=== PATIENT | male | born 1955 | race Caucasian/White ===

== ENCOUNTER 2019-12-23 06:58 | Inpatient (IN) | payer MEDICARE, OTHER ==
[~2019-12-23] VITALS: Ht 182.9 cm; Wt 130.0 kg
--- NOTE | 2019-12-23 06:00 | NUR ---
Patient in room [facility]. I have received report from EVONNE Germain and had the opportunity to ask questions and assume patient care.
[~2019-12-23 06:58] MED LIST: ACET-1008 PO; BACL-11 PO; DIPH25CA83 PO; FLUO-212 PO; FURO-149 PO; HUM100IN SQ; LACT10SO PO; LIDO700A32 TOP; LORA10TA65 PO; MELA3TAB11 PO; METO25TA6 PO; NEOM500T13 PO; OMEP-50 PO; POTA-82 PO; SPIR50TA PO; TRAZ-251 PO
[2019-12-23] MEDS ORDERED: normal saline 1000ML IV soln IVB ONE (07:40)
--- NOTE | 2019-12-23 07:51 | NUR ---
RN contacted Sharonda ROBLEDO and EVONNE Conde at [facility]. EVONNE Conde stated that patient has left-sided deficit at baseline, last took lactulose at 0000 on today 12/22. Post Acute staff clarified that patient has had decreased but consistent baseline strength and activity since returning from acute inpation hospitalization approx 7 days prior.
[2019-12-23 07:55] LABS: BASOPHILS # (AUTO) 0.1 X10'3 (0-0.2); BASOPHILS % (AUTO) 1.2 % (0-1); EOSINOPHILS # (AUTO) 0.2 X10'3 (0-0.9); EOSINOPHILS % (AUTO) 3.9 % (0-6); HEMATOCRIT 43.5 % (42.0-52.0); LYMPHOCYTES # (AUTO) 1.6 X10'3 (1.1-4.8); LYMPHOCYTES % (AUTO) 28.4 % (21-51); MEAN CORPUSCULAR HEMOGLOBIN 29.2 PG (27.0-31.0); MEAN CORPUSCULAR HGB CONC 34.4 g/dL (33.0-36.5); MEAN CORPUSCULAR VOLUME 84.7 FL (78-98); MEAN PLATELET VOLUME 8.3 FL (7.4-10.4); MONOCYTES # (AUTO) 0.6 X10'3 (0-0.9); MONOCYTES % (AUTO) 10.3 % (2-12); NEUTROPHILS # (AUTO) 3.1 X10'3 (1.8-7.7); NEUTROPHILS % (AUTO) 56.2 % (42-75); PLATELET COUNT 101 X10'3 (140-440); RED BLOOD COUNT 5.14 X10'6 (4.70-6.10); RED CELL DISTRIBUTION WIDTH 19.3 % (11.5-14.5); WHITE BLOOD COUNT 5.5 X10'3 (4.5-11.0)
[2019-12-23 08:02] LABS: ALANINE AMINOTRANSFERASE 30 U/L (12-78); ALBUMIN 2.6 G/DL (3.4-5.0); ALBUMIN/GLOBULIN RATIO 0.7 (1.1-1.5); ALKALINE PHOSPHATASE 64 IU/L (46-116); ANION GAP 11 (8-16); ASPARTATE AMINO TRANSFERASE 37 U/L (10-37); BLOOD UREA NITROGEN 32 MG/DL (7-18); BUN/CREATININE RATIO 23.2 (5.4-32.0); CALCIUM 8.5 MG/DL (8.5-10.1); CHLORIDE 116 MMOL/L (99-107); CREATININE 1.38 MG/DL (0.60-1.10); ETHANOL < 0.010 GM/DL (0.0-0.010); GLUCOSE 132 MG/DL (70-104); SODIUM 145 MMOL/L (135-145); TOTAL PROTEIN 6.2 G/DL (6.4-8.2); eGFR 52 ML/MIN
[2019-12-23 08:05] LABS: POTASSIUM 4.3 MMOL/L (3.5-5.1)
[2019-12-23 08:15] LABS: PLATELET ESTIMATE DECREASED
[2019-12-23 08:16] LABS: ANISOCYTOSIS 2+; BURR CELLS 1+; ELLIPTOCYTES 1+
[2019-12-23 08:16] LABS: CLARITY,URINE CLEAR (Clear); COLOR,URINE YELLOW (Yellow); GLUCOSE, URINE NEGATIVE (Neg); KETONES,URINE NEGATIVE (Neg); LEUKOCYTE ESTERASE ,URINE NEGATIVE (Neg); NITRITES, URINE NEGATIVE (Neg); OCCULT BLOOD,URINE NEGATIVE (Neg); PROTEIN,URINE NEGATIVE (Neg)
[2019-12-23 08:17] LABS: UA COLLECTION TYPE STRAIGHT CATH
[2019-12-23] MEDS ORDERED: haloperidol 5mg tablet PO PRN (08:45)
[2019-12-23] MEDS ORDERED: potassium CL 10mEq/100ml bag 100 ML IV PRN ×2 (08:45)
[2019-12-23] MEDS ORDERED: ondansetron/PF 4mg/2ml inj IV PRN (08:45)
[2019-12-23] MEDS ORDERED: mag hydrox/Alum hydrox/simeth 30ml oral suspension PO PRN (08:45)
[2019-12-23] MEDS ORDERED: magnesium hydroxide 30ml (MOM) UD suspension PO PRN (08:45)
[2019-12-23] MEDS ORDERED: potassium Cl 20 mEq SR tablet PO PRN ×2 (08:45)
[2019-12-23] MEDS ORDERED: LORazepam 2 mg/ml vial IV PRN (08:45)
[2019-12-23] MEDS ORDERED: dextrose 50%-water 50ml dispensing syringe IV PRN ×3 (08:45→12:55)
[2019-12-23] MEDS ORDERED: haloperidol lactate 5mg/ml inj IM PRN (08:45)
[2019-12-23] MEDS ORDERED: thiamine 100mg/ml 2ml inj. IV ONE (08:45)
[2019-12-23] MEDS ORDERED: acetaminophen 325mg tablet PO PRN ×2 (08:45)
[2019-12-23] MEDS ORDERED: NA P133E4 RC (09:20)
[2019-12-23] MEDS ORDERED: IBUP-1984 PO (09:20)
[2019-12-23] MEDS ORDERED: LEVE250T4 PO (09:20)
[2019-12-23] MEDS ORDERED: METH113C20 (09:20)
[2019-12-23] MEDS ORDERED: KEP500T PO (09:20)
[2019-12-23] MEDS ORDERED: [UNRECOGNIZED DRUG - CODE] METER (09:20)
[2019-12-23] MEDS ORDERED: BISA10SU60 RC (09:20)
[2019-12-23] MEDS ORDERED: MAGN400O6 PO (09:20)
[2019-12-23] MEDS ORDERED: NA P230E PR (09:20)
[2019-12-23 10:15] VITALS: BP 123/54
--- NOTE | 2019-12-23 10:20 | NUR ---
Patient received from ER, very difficult to arouse, minimal eye opening with sternal rub, MD Richard contacted and ordered Stat ABG's and stated that they will be over.
[2019-12-23 11:26] LABS: ABG BASE EXCESS -6.9 mmol/L (-2.0-3.0); ABG HCO3 16.3 mmol/L (22.0-26.0); ABG OXYGEN SATURATION 96.1 % (95-98); ABG PCO2 (T) 27.7 mmHg (35.0-45.0); ABG PH (T) 7.387 (7.350-7.450); ABG PO2 (T) 87.3 mmHg (83-108); FCOHb 0.1 % (0.5-1.5); FMetHb 0.2 % (0.3-1.12); FO2Hb 95.8 % (94-100); TOTAL HEMOGLOBIN 16.1 G/dl (14.0-17.9)
[2019-12-23] MEDS ORDERED: rifaximin 550mg tablet PO ONE (11:26)
[2019-12-23] MEDS: lactulose 20gm/30ml cup PO SCH ×3 (11:35→19:17)
--- NOTE | 2019-12-23 12:39 | NUR ---
xifaxan unable to scan, the five medication rights were observed.
[2019-12-23] MEDS ORDERED: insulin Lispro (HumaLOG) vial - multi-dose SQ SCH (12:55)
[2019-12-23] MEDS ORDERED: glucagon, human recombinant 1mg kit SUBCUT PRN (12:55)
[2019-12-23] MEDS ORDERED: dextrose ORAL solution 15 GM/59 ML bottle PO PRN ×2 (12:55)
[2019-12-23] MEDS ORDERED: MESSAGE TO PHARMACY PO ONE (12:55)
[2019-12-23] MEDS: sodium chloride 0.45% 1,000 ML IV SCH (13:47)
--- NOTE | 2019-12-23 16:22 | NUR ---
Patient physical assesment omissions are due to inability to assess due to patient unresponsiveness, lactulose given to address hepatic encephalopathy.
[2019-12-23] MEDS ORDERED: LIDOcaine 2% 10ml TOPICAL JELLY (Urojet) TP ONE (16:35)
[2019-12-23 18:00] VITALS: BP 135/78
--- NOTE | 2019-12-23 18:28 | NUR ---
Patient in room [facility]. I have received report from Kristopher DOUGLASS and had the opportunity to ask questions and assume patient care. Pt resting in bed, IV running @ 100, on room air. No signs of distress, will continue to monitor.
--- NOTE | 2019-12-23 18:30 | NUR ---
Problems reprioritized. Patient report given, questions answered & plan of care reviewed with EVONNE Hanson.
[2019-12-23 18:40] VITALS: BP 123/54
[2019-12-23] MEDS: K and/or MAG REPLACEMENT MC SCH (19:16)
[2019-12-23] MEDS: rifaximin 550mg tablet PO SCH (19:17)
[2019-12-23 20:00] VITALS: BP 135/78
[2019-12-23] MEDS: insulin glargine (Lantus) pen - multi-dose SQ SCH (21:00)
[2019-12-24] VITALS: BP 122/71
[2019-12-24] MEDS: sodium chloride 0.45% 1,000 ML IV SCH ×3 (00:13→20:25)
[2019-12-24] MEDS: HYDROcodone/acetaminophen 5mg/325mg tablet PO PRN (00:13)
[2019-12-24] MEDS: LORazepam 1 MG tablet PO PRN (00:13)
[2019-12-24] MEDS: lactulose 20gm/30ml cup PO SCH ×4 (03:45→23:10)
[2019-12-24 05:31] LABS: ALANINE AMINOTRANSFERASE 36 U/L (12-78); ALBUMIN 2.8 G/DL (3.4-5.0); ALBUMIN/GLOBULIN RATIO 0.7 (1.1-1.5); ALKALINE PHOSPHATASE 66 IU/L (46-116); ANION GAP 9 (8-16); ASPARTATE AMINO TRANSFERASE 37 U/L (10-37); BILIRUBIN,TOTAL 2.8 MG/DL (0.1-1.0); BLOOD UREA NITROGEN 23 MG/DL (7-18); CALCIUM 8.9 MG/DL (8.5-10.1); CHLORIDE 115 MMOL/L (99-107); CREATININE 1.21 MG/DL (0.60-1.10); GLUCOSE 126 MG/DL (70-104); POTASSIUM 4.3 MMOL/L (3.5-5.1); SODIUM 146 MMOL/L (135-145); TOTAL CARBON DIOXIDE 21.6 MMOL/L (24-32); TOTAL PROTEIN 6.6 G/DL (6.4-8.2); eGFR 61 ML/MIN
[2019-12-24 06:43] LABS: BASOPHILS # (AUTO) 0.1 X10'3 (0-0.2); BASOPHILS % (AUTO) 0.8 % (0-1); EOSINOPHILS # (AUTO) 0.2 X10'3 (0-0.9); EOSINOPHILS % (AUTO) 2.9 % (0-6); HEMATOCRIT 45.2 % (42.0-52.0); HEMOGLOBIN 15.6 g/dl (14.0-17.9); LYMPHOCYTES # (AUTO) 1.2 X10'3 (1.1-4.8); LYMPHOCYTES % (AUTO) 17.8 % (21-51); MEAN CORPUSCULAR HEMOGLOBIN 29.3 PG (27.0-31.0); MEAN CORPUSCULAR HGB CONC 34.5 g/dL (33.0-36.5); MEAN CORPUSCULAR VOLUME 85.2 FL (78-98); MEAN PLATELET VOLUME 8.6 FL (7.4-10.4); MONOCYTES # (AUTO) 0.9 X10'3 (0-0.9); MONOCYTES % (AUTO) 12.9 % (2-12); NEUTROPHILS # (AUTO) 4.4 X10'3 (1.8-7.7); NEUTROPHILS % (AUTO) 65.6 % (42-75); PLATELET COUNT 101 X10'3 (140-440); RED CELL DISTRIBUTION WIDTH 19.4 % (11.5-14.5); WHITE BLOOD COUNT 6.8 X10'3 (4.5-11.0)
--- NOTE | 2019-12-24 06:43 | NUR ---
Problems reprioritized. Patient report given, questions answered & plan of care reviewed with Jocelynn DOUGLASS.
--- NOTE | 2019-12-24 07:27 | NUR ---
Patient in room [facility]. I have received report from Margie DOUGLASS and had the opportunity to ask questions and assume patient care.
[2019-12-24 08:00] VITALS: BP 134/86
[2019-12-24] MEDS: K and/or MAG REPLACEMENT MC SCH ×2 (08:00→20:00)
[2019-12-24] MEDS ORDERED: enoxaparin 40mg/0.4ml syringe SUBCUT SCH (08:00)
[2019-12-24] MEDS: rifaximin 550mg tablet PO SCH ×2 (08:15→20:25)
[2019-12-24] MEDS: multivitamins, therapeutics tablet PO SCH (08:15)
[2019-12-24] MEDS: folic acid 1mg tablet PO SCH (08:15)
[2019-12-24 09:21] LABS: ANISOCYTOSIS 2+; PLATELET ESTIMATE DECREASED
--- NOTE | 2019-12-24 11:00 | NUR ---
At 0645 found pt's NG tube removed and laying on pt's chest. Charge Nurse advised. 0800 discussed with Charge checking pt's gag reflex (+) and pt awake and talking with this RN, able to state name, birthdate, in the hospital, ok to try small bites of ice and sips of water...tolerated well along with AM meds given PO crushed. Dr Pina notfied. Will continue to monitor.
[2019-12-24 12:00] VITALS: BP 139/80
--- NOTE | 2019-12-24 12:47 | NUR ---
Page Sent promotional table spacer PAGER ID: [phone] MESSAGE: Tanner Evans, Jocelynn med/surg, [phone], re: Jesusita, Rm 350A. Could you please clarify the thickened liquid diet you would like for this pt, or would you like a swallow study ordered for them to determine the consistency pt can tolerate? Thank you (237 character message out of a maximum of 240)
--- NOTE | 2019-12-24 15:39 | NUR ---
PAGER ID: [phone] MESSAGE: Jocelynn Med/Surg [phone], re: Jesusita [id number]. Have not been able to reach Speech Therapy by phone/mssg, so pt will probably have swallow eval in a.m. Is it ok to give PO meds with applesauce or yogurt? thank you
--- NOTE | 2019-12-24 16:10 | NUR ---
phone call from raman Aguilar to give pt meds crushed in yogurt, applesauce, jello or thickened liquids.
[2019-12-24] MEDS: neomycin sulfate 500mg tablet PO SCH ×2 (16:18→23:10)
[2019-12-24] MEDS: FLUoxetine 20mg capsule PO SCH (16:19)
[2019-12-24] MEDS: thiamine 100mg tablet PO SCH (16:19)
[2019-12-24] MEDS: metoprolol tartrate 25mg tablet PO SCH (16:19)
[2019-12-24] MEDS: levetiracetam 250mg tablet PO SCH ×2 (16:20→20:26)
--- NOTE | 2019-12-24 19:00 | NUR ---
Problems reprioritized. Patient report given, questions answered & plan of care reviewed with Margie DOUGLASS.
[2019-12-24 20:00] VITALS: BP 123/78
[2019-12-24] MEDS: traZODone 50mg tablet PO SCH (20:26)
[2019-12-24] MEDS: Melatonin 3mg tablet PO SCH (20:26)
[2019-12-24] MEDS: lactobacillus rhamnosus 10,000 MMU CELLS/CAPSULE PO SCH (20:27)
[2019-12-24] MEDS: insulin glargine (Lantus) pen - multi-dose SQ SCH (21:00)
[2019-12-24 23:46] VITALS: BP 132/79
--- NOTE | 2019-12-25 04:19 | NUR ---
Due to system unavailability all documentation completed is found in the paper chart during the following time frame: starting date: 12/24/2019 time: 2345 ending date: 12/25/2019 time: 0414
[2019-12-25] MEDS: sodium chloride 0.45% 1,000 ML IV SCH ×3 (05:39→21:03)
[2019-12-25 05:55] LABS: ALANINE AMINOTRANSFERASE 32 U/L (12-78); ALBUMIN 2.6 G/DL (3.4-5.0); ALBUMIN/GLOBULIN RATIO 0.7 (1.1-1.5); ALKALINE PHOSPHATASE 69 IU/L (46-116); ANION GAP 9 (8-16); ASPARTATE AMINO TRANSFERASE 35 U/L (10-37); BILIRUBIN,TOTAL 3.1 MG/DL (0.1-1.0); BLOOD UREA NITROGEN 18 MG/DL (7-18); BUN/CREATININE RATIO 18.9 (5.4-32.0); CALCIUM 8.8 MG/DL (8.5-10.1); CHLORIDE 110 MMOL/L (99-107); CREATININE 0.95 MG/DL (0.60-1.10); GLUCOSE 128 MG/DL (70-104); POTASSIUM 4.1 MMOL/L (3.5-5.1); SODIUM 140 MMOL/L (135-145); TOTAL CARBON DIOXIDE 20.7 MMOL/L (24-32); TOTAL PROTEIN 6.5 G/DL (6.4-8.2); eGFR 80 ML/MIN
[2019-12-25 06:00] LABS: BASOPHILS # (AUTO) 0.1 X10'3 (0-0.2); BASOPHILS % (AUTO) 1.2 % (0-1); EOSINOPHILS # (AUTO) 0.3 X10'3 (0-0.9); EOSINOPHILS % (AUTO) 6.2 % (0-6); LYMPHOCYTES # (AUTO) 1.3 X10'3 (1.1-4.8); MEAN CORPUSCULAR HEMOGLOBIN 29.6 PG (27.0-31.0); MEAN CORPUSCULAR HGB CONC 34.9 g/dL (33.0-36.5); MEAN CORPUSCULAR VOLUME 84.8 FL (78-98); MEAN PLATELET VOLUME 8.2 FL (7.4-10.4); MONOCYTES # (AUTO) 0.7 X10'3 (0-0.9); MONOCYTES % (AUTO) 13.7 % (2-12); NEUTROPHILS % (AUTO) 54.9 % (42-75); PLATELET COUNT 102 X10'3 (140-440); RED BLOOD COUNT 5.07 X10'6 (4.70-6.10); WHITE BLOOD COUNT 5.4 X10'3 (4.5-11.0)
--- NOTE | 2019-12-25 06:23 | NUR ---
Problems reprioritized. Patient report given, questions answered & plan of care reviewed with Meli DOUGLASS.
[2019-12-25 08:00] VITALS: BP 120/66
[2019-12-25] MEDS: K and/or MAG REPLACEMENT MC SCH ×2 (08:00→20:00)
[2019-12-25] MEDS: metoprolol tartrate 25mg tablet PO SCH (09:07)
[2019-12-25] MEDS: lactobacillus rhamnosus 10,000 MMU CELLS/CAPSULE PO SCH ×2 (09:07→21:03)
[2019-12-25] MEDS: levetiracetam 250mg tablet PO SCH ×2 (09:07→21:10)
[2019-12-25] MEDS: thiamine 100mg tablet PO SCH (09:07)
[2019-12-25] MEDS: folic acid 1mg tablet PO SCH (09:07)
[2019-12-25] MEDS: FLUoxetine 20mg capsule PO SCH (09:07)
[2019-12-25] MEDS: lactulose 20gm/30ml cup PO SCH ×3 (09:07→23:59)
[2019-12-25] MEDS: multivitamins, therapeutics tablet PO SCH (09:07)
[2019-12-25] MEDS: rifaximin 550mg tablet PO SCH ×2 (09:09→21:03)
[2019-12-25] MEDS: pantoprazole 40mg Tablet.DR PO SCH (09:10)
[2019-12-25] MEDS: neomycin sulfate 500mg tablet PO SCH ×3 (09:10→23:59)
[2019-12-25 11:08] LABS: PLATELET ESTIMATE DECREASED
[2019-12-25 11:10] LABS: ANISOCYTOSIS 2+; POIKILOCYTOSIS 3+; TEAR DROP CELLS FEW
[2019-12-25 11:11] LABS: ACANTHOCYTES FEW; ELLIPTOCYTES 2+; POLYCHROMASIA FEW
[2019-12-25 11:12] LABS: BURR CELLS 2+; SCHISTOCYTES FEW
[2019-12-25 12:00] VITALS: BP 136/67
--- NOTE | 2019-12-25 18:30 | NUR ---
Patient in room [facility]. I have received report from Meli DOUGLASS and had the opportunity to ask questions and assume patient care.
[2019-12-25 20:00] VITALS: BP 116/62
[2019-12-25] MEDS: insulin glargine (Lantus) pen - multi-dose SQ SCH (21:00)
[2019-12-25] MEDS: traZODone 50mg tablet PO SCH (21:04)
[2019-12-25] MEDS: Melatonin 3mg tablet PO SCH (21:06)
[2019-12-25] MEDS: HYDROcodone/acetaminophen 5mg/325mg tablet PO PRN (21:13)
[2019-12-26] VITALS: BP 91/56
[2019-12-26] MEDS: LORazepam 1 MG tablet PO PRN (00:24)
--- NOTE | 2019-12-26 06:24 | NUR ---
Patient in room [facility]. I have received report from EVONNE Streeter and had the opportunity to ask questions and assume patient care.
--- NOTE | 2019-12-26 06:30 | NUR ---
Problems reprioritized. Patient report given, questions answered & plan of care reviewed with Nora DOUGLASS.
[2019-12-26 06:31] LABS: BASOPHILS # (AUTO) 0.1 X10'3 (0-0.2); BASOPHILS % (AUTO) 1.1 % (0-1); EOSINOPHILS # (AUTO) 0.4 X10'3 (0-0.9); EOSINOPHILS % (AUTO) 7.1 % (0-6); HEMATOCRIT 42.7 % (42.0-52.0); LYMPHOCYTES # (AUTO) 1.3 X10'3 (1.1-4.8); LYMPHOCYTES % (AUTO) 24.4 % (21-51); MEAN CORPUSCULAR HEMOGLOBIN 29.4 PG (27.0-31.0); MEAN CORPUSCULAR HGB CONC 35.1 g/dL (33.0-36.5); MEAN CORPUSCULAR VOLUME 83.7 FL (78-98); MEAN PLATELET VOLUME 8.4 FL (7.4-10.4); MONOCYTES # (AUTO) 0.7 X10'3 (0-0.9); MONOCYTES % (AUTO) 13.8 % (2-12); NEUTROPHILS # (AUTO) 2.8 X10'3 (1.8-7.7); NEUTROPHILS % (AUTO) 53.6 % (42-75); PLATELET COUNT 98 X10'3 (140-440); RED CELL DISTRIBUTION WIDTH 18.5 % (11.5-14.5); WHITE BLOOD COUNT 5.1 X10'3 (4.5-11.0)
[2019-12-26 06:41] LABS: ALANINE AMINOTRANSFERASE 33 U/L (12-78); ALBUMIN 2.5 G/DL (3.4-5.0); ALBUMIN/GLOBULIN RATIO 0.7 (1.1-1.5); ALKALINE PHOSPHATASE 83 IU/L (46-116); ANION GAP 9 (8-16); ASPARTATE AMINO TRANSFERASE 37 U/L (10-37); BILIRUBIN,TOTAL 2.5 MG/DL (0.1-1.0); BLOOD UREA NITROGEN 11 MG/DL (7-18); BUN/CREATININE RATIO 11.6 (5.4-32.0); CALCIUM 8.5 MG/DL (8.5-10.1); CHLORIDE 109 MMOL/L (99-107); CREATININE 0.95 MG/DL (0.60-1.10); GLUCOSE 112 MG/DL (70-104); SODIUM 139 MMOL/L (135-145); TOTAL PROTEIN 6.2 G/DL (6.4-8.2); eGFR 80 ML/MIN
[2019-12-26 07:18] VITALS: BP 90/57
[2019-12-26] MEDS: metoprolol tartrate 25mg tablet PO SCH (08:00)
[2019-12-26] MEDS: K and/or MAG REPLACEMENT MC SCH (08:00)
[2019-12-26] MEDS: FLUoxetine 20mg capsule PO SCH (08:50)
[2019-12-26] MEDS: multivitamins, therapeutics tablet PO SCH (08:50)
[2019-12-26] MEDS: levetiracetam 250mg tablet PO SCH (08:50)
[2019-12-26] MEDS: thiamine 100mg tablet PO SCH (08:50)
[2019-12-26] MEDS: lactobacillus rhamnosus 10,000 MMU CELLS/CAPSULE PO SCH (08:50)
[2019-12-26] MEDS: folic acid 1mg tablet PO SCH (08:50)
[2019-12-26] MEDS: lactulose 20gm/30ml cup PO SCH (08:52)
[2019-12-26] MEDS: neomycin sulfate 500mg tablet PO SCH (08:53)
[2019-12-26] MEDS: pantoprazole 40mg Tablet.DR PO SCH (08:53)
[2019-12-26] MEDS: rifaximin 550mg tablet PO SCH (08:53)
[2019-12-26] MEDS: sodium chloride 0.45% 1,000 ML IV SCH (10:41)
[2019-12-26 11:00] VITALS: BP 127/76
[2019-12-26] MEDS ORDERED: RIFA550T PO (12:10)
--- NOTE | 2019-12-26 15:17 | NUR ---
Report called to Liset PRINCE at [facility]
--- NOTE | 2019-12-26 16:26 | NUR ---
Pt transported to [facility] via wheelchair by [facility] [facility]. IV DC'd, cannula intact. Tele DC'd and returned to PCU.
== END 2019-12-26 16:25 | DRG 442 ==
LOC: ER 06:58 → ED HOLD 08:45 → SUR 3N 10:05
PROVIDERS: ADMIT Internal Medicine; ATTEND Internal Medicine
DX: K72.90 Hepatic failure, unspecified without coma (principal); I69.359 Hemiplegia and hemiparesis following cerebral infarction affecting unspecified side; E87.2 Acidosis; K70.30 Alcoholic cirrhosis of liver without ascites; D69.6 Thrombocytopenia, unspecified; E11.65 Type 2 diabetes mellitus with hyperglycemia; E11.42 Type 2 diabetes mellitus with diabetic polyneuropathy; E86.9 Volume depletion, unspecified; K21.9 Gastro-esophageal reflux disease without esophagitis; E11.22 Type 2 diabetes mellitus with diabetic chronic kidney disease; I12.9 Hypertensive chronic kidney disease with stage 1 through stage 4 chronic kidney disease, or unspecified chronic kidney disease; N18.9 Chronic kidney disease, unspecified; F32.9 Major depressive disorder, single episode, unspecified; R56.9 Unspecified convulsions; F10.10 Alcohol abuse, uncomplicated; Y90.9 Presence of alcohol in blood, level not specified; Z79.4 Long term (current) use of insulin
CPT/HCPCS: 36415; 36600; 70450; 71045; 76937; 80053; 80320; 81003; 82140; 82803; 82948; 85018; 85025; 85610; 87081; 92508; 92616; 93005; 97110; 97112; 97161; 97530; 99285; G0378; J1815; J3411; J7030

== ENCOUNTER 2020-05-15 17:50 | Inpatient (IN) | payer MEDICARE, MEDICAID ==
[~2020-05-15] VITALS: Ht 188 cm; Wt 116.0 kg
[~2020-05-15 17:50] MED LIST changes: -ACET-1008 PO; -BACL-11 PO; -DIPH25CA83 PO; +FOLI0.4T14 PO; +KEP500T PO; +LACT1CAP65 PO; +METH113C20; +RIFA550T PO; -SPIR50TA PO; +[UNRECOGNIZED DRUG - CODE] METER
[2020-05-15 18:59] LABS: ALANINE AMINOTRANSFERASE 33 U/L (12-78); ALBUMIN/GLOBULIN RATIO 0.8 (1.1-1.5); ALKALINE PHOSPHATASE 81 IU/L (46-116); ANION GAP 8 (8-16); ASPARTATE AMINO TRANSFERASE 39 U/L (10-37); BILIRUBIN,TOTAL 1.8 MG/DL (0.1-1.0); BLOOD UREA NITROGEN 14 MG/DL (7-18); BUN/CREATININE RATIO 10.6 (5.4-32.0); CALCIUM 8.8 MG/DL (8.5-10.1); CHLORIDE 107 MMOL/L (99-107); CREATININE 1.32 MG/DL (0.60-1.10); GLUCOSE 115 MG/DL (70-104); POTASSIUM 4.3 MMOL/L (3.5-5.1); SODIUM 139 MMOL/L (135-145); TOTAL CARBON DIOXIDE 23.9 MMOL/L (24-32); TOTAL PROTEIN 6.8 G/DL (6.4-8.2); eGFR 55 ML/MIN
[2020-05-15 19:02] LABS: TROPONIN I < 0.04 NG/ML (0.0-0.05)
[2020-05-15 19:22] LABS: BASOPHILS % (AUTO) 0.8 % (0-1); EOSINOPHILS # (AUTO) 0.3 X10'3 (0-0.9); EOSINOPHILS % (AUTO) 4.4 % (0-6); HEMATOCRIT 39.8 % (42.0-52.0); HEMOGLOBIN 13.7 g/dl (14.0-17.9); LYMPHOCYTES # (AUTO) 1.4 X10'3 (1.1-4.8); LYMPHOCYTES % (AUTO) 21.9 % (21-51); MEAN CORPUSCULAR HEMOGLOBIN 29.3 PG (27.0-31.0); MEAN CORPUSCULAR HGB CONC 34.4 g/dL (33.0-36.5); MEAN CORPUSCULAR VOLUME 85.2 FL (78-98); MEAN PLATELET VOLUME 8.9 FL (7.4-10.4); MONOCYTES # (AUTO) 0.8 X10'3 (0-0.9); MONOCYTES % (AUTO) 13.1 % (2-12); NEUTROPHILS # (AUTO) 3.8 X10'3 (1.8-7.7); NEUTROPHILS % (AUTO) 59.8 % (42-75); PLATELET COUNT 115 X10'3 (140-440); RED BLOOD COUNT 4.67 X10'6 (4.70-6.10); RED CELL DISTRIBUTION WIDTH 15.1 % (11.5-14.5); WHITE BLOOD COUNT 6.4 X10'3 (4.5-11.0)
[2020-05-15] MEDS ORDERED: normal saline 1000ML IV soln IVB ONE (19:30)
[2020-05-15] MEDS ORDERED: lactulose 20gm/30ml cup PO ONE (19:30)
[2020-05-15 19:42] LABS: CLARITY,URINE CLEAR (Clear); COLOR,URINE YELLOW (Yellow); GLUCOSE, URINE NEGATIVE (Neg); KETONES,URINE NEGATIVE (Neg); LEUKOCYTE ESTERASE ,URINE NEGATIVE (Neg); NITRITES, URINE NEGATIVE (Neg); OCCULT BLOOD,URINE TRACE-INTACT (Neg); PROTEIN,URINE NEGATIVE (Neg); UA COLLECTION TYPE FOLEY CATH; UROBILINOGEN,URINE 0.2 E.U/dL (0.2-1.0)
[2020-05-15 19:47] LABS: RBC,URINE 0-2 /HPF (0-2); WBC,URINE NONE SEEN /HPF (0-4)
[2020-05-15 19:48] LABS: BACTERIA,URINE NONE SEEN /HPF (Neg); SQUAMOUS EPITHELIAL CELL,UR FEW /LPF (FEW)
[2020-05-15] MEDS ORDERED: normal saline 1000ml 1,000 ML IV SCH (22:16)
[2020-05-15] MEDS ORDERED: dextrose 50%-water 50ml dispensing syringe IV PRN ×2 (22:20)
[2020-05-15] MEDS ORDERED: glucagon, human recombinant 1mg kit SUBCUT PRN (22:20)
[2020-05-15] MEDS ORDERED: mag hydrox/Alum hydrox/simeth 30ml oral suspension PO PRN (22:20)
[2020-05-15] MEDS ORDERED: insulin Lispro (HumaLOG) vial - multi-dose SQ SCH (22:20)
[2020-05-15] MEDS ORDERED: dextrose ORAL solution 15 GM/59 ML bottle PO PRN ×2 (22:20)
[2020-05-15] MEDS ORDERED: acetaminophen 325mg tablet PO PRN (22:20)
[2020-05-15] MEDS ORDERED: MESSAGE TO PHARMACY PO ONE (22:20)
[2020-05-15] MEDS ORDERED: magnesium hydroxide 30ml (MOM) UD suspension PO PRN (22:20)
[2020-05-15 22:33] LABS: HEMOGLOBIN A1C 5.6 % (4.5-6.2)
--- NOTE | 2020-05-15 23:04 | NUR ---
Patient in room ED 16. I have received report from EVONNE Figueroa and had the opportunity to ask questions and assume patient care. Addendum: 05/15/20 at 2305 by Luz Celestin RN Amended: Links added.
[2020-05-15 23:45] VITALS: BP 166/76
--- NOTE | 2020-05-15 23:45 | NUR ---
patient arrived at the floor, only answer yes or no to questions and unable to DART. pt had BM while cleaning, f/c and NG tube in place with blood all over
[2020-05-16] MEDS: lactulose 20gm/30ml cup PO SCH ×6 (00:55→19:42)
[2020-05-16 05:13] LABS: BASOPHILS # (AUTO) 0.1 X10'3 (0-0.2); BASOPHILS % (AUTO) 0.7 % (0-1); EOSINOPHILS # (AUTO) 0.1 X10'3 (0-0.9); EOSINOPHILS % (AUTO) 1.4 % (0-6); HEMATOCRIT 39.8 % (42.0-52.0); HEMOGLOBIN 13.7 g/dl (14.0-17.9); LYMPHOCYTES # (AUTO) 1.1 X10'3 (1.1-4.8); LYMPHOCYTES % (AUTO) 11.7 % (21-51); MEAN CORPUSCULAR HEMOGLOBIN 29.2 PG (27.0-31.0); MEAN CORPUSCULAR HGB CONC 34.3 g/dL (33.0-36.5); MEAN CORPUSCULAR VOLUME 85.1 FL (78-98); MONOCYTES # (AUTO) 0.9 X10'3 (0-0.9); MONOCYTES % (AUTO) 9.3 % (2-12); NEUTROPHILS % (AUTO) 76.9 % (42-75); PLATELET COUNT 135 X10'3 (140-440); RED BLOOD COUNT 4.68 X10'6 (4.70-6.10); WHITE BLOOD COUNT 9.2 X10'3 (4.5-11.0)
[2020-05-16 05:29] LABS: ALANINE AMINOTRANSFERASE 34 U/L (12-78); ALBUMIN 3.1 G/DL (3.4-5.0); ALBUMIN/GLOBULIN RATIO 0.8 (1.1-1.5); ALKALINE PHOSPHATASE 75 IU/L (46-116); ANION GAP 12 (8-16); ASPARTATE AMINO TRANSFERASE 37 U/L (10-37); BILIRUBIN,TOTAL 2.4 MG/DL (0.1-1.0); BLOOD UREA NITROGEN 14 MG/DL (7-18); BUN/CREATININE RATIO 10.8 (5.4-32.0); CALCIUM 8.7 MG/DL (8.5-10.1); CHLORIDE 108 MMOL/L (99-107); GLUCOSE 156 MG/DL (70-104); POTASSIUM 4.2 MMOL/L (3.5-5.1); SODIUM 139 MMOL/L (135-145); TOTAL CARBON DIOXIDE 18.8 MMOL/L (24-32); TOTAL PROTEIN 7.1 G/DL (6.4-8.2); eGFR 56 ML/MIN
--- NOTE | 2020-05-16 06:45 | NUR ---
Patient in room [facility]. I have received report from Maggie FUENTES and had the opportunity to ask questions and assume patient care. Addendum: 05/16/20 at 0736 by Leonid Melvin RN Typo error: Maggie Wetzel RN
[2020-05-16 07:00] VITALS: BP 144/82
--- NOTE | 2020-05-16 07:00 | NUR ---
Patient's NGT found out already when I made rounds. Patient stated he did not know what happened. Patient alert, oriented to person but he does not know what year it is and place where he is currently at although he know who the current president is. Will give patient oral fluid to see if he tolerates. NGT was placed only because patient was lethargic at the time of admission and could not safely take Lactulose. Charge nurse Kassy notified about this
[2020-05-16] MEDS: rifaximin 550mg tablet PO SCH ×2 (09:26→19:39)
[2020-05-16] MEDS ORDERED: potassium Cl 20 mEq SR tablet PO PRN ×2 (09:30)
[2020-05-16] MEDS ORDERED: magnesium Cl slow-release 64mg tablet PO PRN (09:30)
[2020-05-16] MEDS ORDERED: potassium CL 10mEq/100ml bag 100 ML IV PRN (09:30)
[2020-05-16] MEDS ORDERED: magnesium 4gm in 100ml NS 100 ML IV PRN (09:30)
[2020-05-16] MEDS: K and/or MAG REPLACEMENT MC SCH ×2 (09:30→20:00)
--- NOTE | 2020-05-16 10:41 | NUR ---
PAGER ID: [phone] MESSAGE: Surgical Cori Jaquez RN ext [phone]. RE: Javon Mc. Patient NGT was found out this am. It was only placed to ensure Lactulose being given since he was lethargic. Today he is alert and able to tolerate drinking water and his medicine.
[2020-05-16 11:00] VITALS: BP 161/72
[2020-05-16] MEDS ORDERED: IBUP-1985 PO (11:05)
[2020-05-16 18:00] VITALS: BP 145/75
--- NOTE | 2020-05-16 18:00 | NUR ---
Patient in room [facility]. I have received report from Leonid DOUGLASS and had the opportunity to ask questions and assume patient care.
--- NOTE | 2020-05-16 18:56 | NUR ---
Problems reprioritized. Patient report given, questions answered & plan of care reviewed with Paulette DOUGLASS.
[2020-05-16] MEDS: lactobacillus rhamnosus 10,000 MMU CELLS/CAPSULE PO SCH (19:39)
[2020-05-17] VITALS: BP 119/63
--- NOTE | 2020-05-17 05:15 | NUR ---
took out garza catheter at 0500, patient handled it well
[2020-05-17 05:52] LABS: BASOPHILS # (AUTO) 0.1 X10'3 (0-0.2); BASOPHILS % (AUTO) 0.8 % (0-1); EOSINOPHILS # (AUTO) 0.1 X10'3 (0-0.9); EOSINOPHILS % (AUTO) 0.7 % (0-6); HEMATOCRIT 41.5 % (42.0-52.0); HEMOGLOBIN 14.2 g/dl (14.0-17.9); LYMPHOCYTES # (AUTO) 1.2 X10'3 (1.1-4.8); MEAN CORPUSCULAR HEMOGLOBIN 29.2 PG (27.0-31.0); MEAN CORPUSCULAR HGB CONC 34.3 g/dL (33.0-36.5); MEAN CORPUSCULAR VOLUME 85.3 FL (78-98); MEAN PLATELET VOLUME 9.1 FL (7.4-10.4); MONOCYTES # (AUTO) 1.1 X10'3 (0-0.9); MONOCYTES % (AUTO) 10.6 % (2-12); NEUTROPHILS # (AUTO) 8.2 X10'3 (1.8-7.7); NEUTROPHILS % (AUTO) 76.9 % (42-75); PLATELET COUNT 136 X10'3 (140-440); RED BLOOD COUNT 4.87 X10'6 (4.70-6.10); RED CELL DISTRIBUTION WIDTH 15.1 % (11.5-14.5); WHITE BLOOD COUNT 10.6 X10'3 (4.5-11.0)
--- NOTE | 2020-05-17 06:05 | NUR ---
Problems reprioritized. Patient report given, questions answered & plan of care reviewed with Leonid DOUGLASS.
--- NOTE | 2020-05-17 06:06 | NUR ---
Patient in room [facility] 358. I have received report from Paulette DOUGLASS and had the opportunity to ask questions and assume patient care.
[2020-05-17 06:15] LABS: ALANINE AMINOTRANSFERASE 30 U/L (12-78); ALBUMIN 3.1 G/DL (3.4-5.0); ALBUMIN/GLOBULIN RATIO 0.8 (1.1-1.5); ALKALINE PHOSPHATASE 75 IU/L (46-116); ANION GAP 12 (8-16); ASPARTATE AMINO TRANSFERASE 35 U/L (10-37); BLOOD UREA NITROGEN 14 MG/DL (7-18); BUN/CREATININE RATIO 12.1 (5.4-32.0); CHLORIDE 104 MMOL/L (99-107); CREATININE 1.16 MG/DL (0.60-1.10); GLUCOSE 164 MG/DL (70-104); MAGNESIUM 1.4 MG/DL (1.5-2.4); PHOSPHORUS 3.2 MG/DL (2.3-4.5); SODIUM 134 MMOL/L (135-145); TOTAL CARBON DIOXIDE 17.7 MMOL/L (24-32); TOTAL PROTEIN 7.2 G/DL (6.4-8.2); eGFR 64 ML/MIN
--- NOTE | 2020-05-17 06:30 | NUR ---
Patient in room [facility] 358. I have received report from Paulette DOUGLASS and had the opportunity to ask questions and assume patient care.
[2020-05-17 07:00] VITALS: BP 129/74
[2020-05-17] MEDS: K and/or MAG REPLACEMENT MC SCH ×2 (08:00→20:00)
[2020-05-17] MEDS: ondansetron/PF 4mg/2ml inj IV PRN ×2 (08:04→14:27)
[2020-05-17] MEDS: lactulose 20gm/30ml cup PO SCH ×4 (08:10→20:01)
[2020-05-17] MEDS: rifaximin 550mg tablet PO SCH ×2 (08:11→20:00)
[2020-05-17] MEDS: lactobacillus rhamnosus 10,000 MMU CELLS/CAPSULE PO SCH ×2 (08:11→20:00)
--- NOTE | 2020-05-17 09:08 | NUR ---
PAGER ID: [phone] MESSAGE: Surgical Cori Jaquez RN ext [phone]. RE: Javon Mc. Patient vomited today after eating his breakfast. Patient complaining of abdominal pain abdomen soft but tender on the right and left upper quadrant. Ammonia 69 from 52 yesterday.
[2020-05-17 11:00] VITALS: BP 135/70
--- NOTE | 2020-05-17 11:12 | NUR ---
PAGER ID: [phone] MESSAGE: Surgical Flbonnie Jaquez RN ext [phone]. RE: Javon Mc. Patient has not peed yet since the garza catheter was discontinued at 05:00am. Bladder scan 260ml. Do you want me to straight cath the patient?
[2020-05-17] MEDS: sodium bicarbonate (8.4%) inj. 150 MEQ in dextrose 5%-water 1,000 ML IV SCH (13:09)
[2020-05-17] MEDS ORDERED: metoclopramide 5 mg/ml inj IV ONE (13:15)
--- NOTE | 2020-05-17 14:31 | NUR ---
Oral care provided to patient and combed his hair after cleaning him up
[2020-05-17 18:00] VITALS: BP 160/80
--- NOTE | 2020-05-17 18:00 | NUR ---
Patient in room [facility]. I have received report from Leonid DOUGLASS and had the opportunity to ask questions and assume patient care.
--- NOTE | 2020-05-17 18:32 | NUR ---
Problems reprioritized. Patient report given, questions answered & plan of care reviewed with Paulette DOUGLASS.
[2020-05-17] MEDS: metoclopramide 5 mg/ml inj IV PRN (20:01)
[2020-05-17 23:57] VITALS: BP 155/75
[2020-05-18] MEDS: lactulose 20gm/30ml cup PO SCH ×4 (01:35→20:04)
[2020-05-18] MEDS: ondansetron/PF 4mg/2ml inj IV PRN ×4 (02:14→21:43)
[2020-05-18] MEDS: sodium bicarbonate (8.4%) inj. 150 MEQ in dextrose 5%-water 1,000 ML IV SCH (04:29)
[2020-05-18 06:12] LABS: ALANINE AMINOTRANSFERASE 27 U/L (12-78); ALBUMIN 3.1 G/DL (3.4-5.0); ALBUMIN/GLOBULIN RATIO 0.7 (1.1-1.5); ALKALINE PHOSPHATASE 77 IU/L (46-116); ANION GAP 10 (8-16); ASPARTATE AMINO TRANSFERASE 30 U/L (10-37); BILIRUBIN,TOTAL 2.9 MG/DL (0.1-1.0); BLOOD UREA NITROGEN 18 MG/DL (7-18); BUN/CREATININE RATIO 11.9 (5.4-32.0); CALCIUM 9.1 MG/DL (8.5-10.1); CHLORIDE 100 MMOL/L (99-107); CREATININE 1.51 MG/DL (0.60-1.10); GLUCOSE 187 MG/DL (70-104); MAGNESIUM 1.6 MG/DL (1.5-2.4); PHOSPHORUS 2.7 MG/DL (2.3-4.5); POTASSIUM 3.5 MMOL/L (3.5-5.1); SODIUM 135 MMOL/L (135-145); TOTAL CARBON DIOXIDE 25.2 MMOL/L (24-32); TOTAL PROTEIN 7.4 G/DL (6.4-8.2); eGFR 47 ML/MIN
[2020-05-18 06:13] LABS: BASOPHILS % (AUTO) 0.2 % (0-1); EOSINOPHILS % (AUTO) 0.1 % (0-6); HEMATOCRIT 42.2 % (42.0-52.0); HEMOGLOBIN 14.6 g/dl (14.0-17.9); LYMPHOCYTES # (AUTO) 1.2 X10'3 (1.1-4.8); LYMPHOCYTES % (AUTO) 6.6 % (21-51); MEAN CORPUSCULAR HEMOGLOBIN 29.3 PG (27.0-31.0); MEAN CORPUSCULAR HGB CONC 34.6 g/dL (33.0-36.5); MEAN CORPUSCULAR VOLUME 84.6 FL (78-98); MEAN PLATELET VOLUME 9.1 FL (7.4-10.4); MONOCYTES # (AUTO) 2.1 X10'3 (0-0.9); MONOCYTES % (AUTO) 11.3 % (2-12); NEUTROPHILS # (AUTO) 15.2 X10'3 (1.8-7.7); NEUTROPHILS % (AUTO) 81.8 % (42-75); PLATELET COUNT 165 X10'3 (140-440); RED BLOOD COUNT 4.99 X10'6 (4.70-6.10); RED CELL DISTRIBUTION WIDTH 15.1 % (11.5-14.5); WHITE BLOOD COUNT 18.6 X10'3 (4.5-11.0)
--- NOTE | 2020-05-18 06:27 | NUR ---
Problems reprioritized. Patient report given, questions answered & plan of care reviewed with Rita DOUGLASS.
--- NOTE | 2020-05-18 06:34 | NUR ---
I have received report from Paulette DOUGLASS and had the opportunity to ask questions and assume patient care.
[2020-05-18 07:00] VITALS: BP 135/69
[2020-05-18] MEDS: rifaximin 550mg tablet PO SCH ×2 (07:38→20:06)
[2020-05-18] MEDS: lactobacillus rhamnosus 10,000 MMU CELLS/CAPSULE PO SCH ×2 (07:38→20:04)
[2020-05-18] MEDS: K and/or MAG REPLACEMENT MC SCH ×2 (08:00→19:07)
[2020-05-18 09:08] LABS: TOTAL CELLS COUNTED 100
[2020-05-18 09:11] LABS: BURR CELLS FEW; ELLIPTOCYTES FEW; PLATELET ESTIMATE NORMAL; POLYCHROMASIA FEW; TEAR DROP CELLS FEW
[2020-05-18 12:00] VITALS: BP 152/76
[2020-05-18] MEDS: metoclopramide 5 mg/ml inj IV PRN ×2 (12:19→20:06)
[2020-05-18] MEDS: diatr meglu/diatrizoate 30ml oral sol.-(3 dose) bottle PO SCH ×3 (12:25→17:34)
--- NOTE | 2020-05-18 15:34 | NUR ---
Ok to give zofran early with contrast per Dr. Traore.
[2020-05-18] MEDS: scopolamine 1.5mg patch.TD72 TD SCH (15:39)
[2020-05-18] MEDS: pantoprazole 40 MG vial IV SCH ×2 (15:48→20:03)
[2020-05-18] MEDS ORDERED: iohexol 300mg/ml 100ml inj. ONE (17:31)
[2020-05-18 20:00] VITALS: BP 150/77
[2020-05-18] MEDS: heparin, porcine 5000 units/ml vial SQ SCH (20:04)
--- NOTE | 2020-05-18 22:10 | NUR ---
Patient had 2 episodes of projectile vomiting tonight. notified. to place NG to low intermittent suction, and to keep patient NPO. @2220 NG placed to patient's left nostril. Patient tolerated well. Return Dark brown of 400ml liquid.
[2020-05-19] VITALS: BP 137/70
[2020-05-19] MEDS: normal saline 1000ml 1,000 ML IV SCH ×2 (00:08→20:42)
[2020-05-19] MEDS: lactulose 20gm/30ml cup PO SCH ×7 (02:59→23:42)
[2020-05-19 05:01] LABS: BASOPHILS # (AUTO) 0.2 X10'3 (0-0.2); BASOPHILS % (AUTO) 0.9 % (0-1); EOSINOPHILS # (AUTO) 0.3 X10'3 (0-0.9); EOSINOPHILS % (AUTO) 1.9 % (0-6); HEMATOCRIT 41.2 % (42.0-52.0); HEMOGLOBIN 14.3 g/dl (14.0-17.9); LYMPHOCYTES % (AUTO) 5.5 % (21-51); MEAN CORPUSCULAR HEMOGLOBIN 29.3 PG (27.0-31.0); MEAN CORPUSCULAR HGB CONC 34.7 g/dL (33.0-36.5); MEAN CORPUSCULAR VOLUME 84.4 FL (78-98); MEAN PLATELET VOLUME 8.9 FL (7.4-10.4); MONOCYTES # (AUTO) 1.8 X10'3 (0-0.9); MONOCYTES % (AUTO) 9.8 % (2-12); NEUTROPHILS # (AUTO) 14.8 X10'3 (1.8-7.7); NEUTROPHILS % (AUTO) 81.9 % (42-75); PLATELET COUNT 169 X10'3 (140-440); RED BLOOD COUNT 4.88 X10'6 (4.70-6.10); RED CELL DISTRIBUTION WIDTH 14.9 % (11.5-14.5); WHITE BLOOD COUNT 18.1 X10'3 (4.5-11.0)
[2020-05-19 05:21] LABS: ALANINE AMINOTRANSFERASE 23 U/L (12-78); ALBUMIN/GLOBULIN RATIO 0.8 (1.1-1.5); ALKALINE PHOSPHATASE 72 IU/L (46-116); ANION GAP 6 (8-16); ASPARTATE AMINO TRANSFERASE 25 U/L (10-37); BILIRUBIN,TOTAL 3.7 MG/DL (0.1-1.0); BLOOD UREA NITROGEN 22 MG/DL (7-18); BUN/CREATININE RATIO 13.2 (5.4-32.0); CHLORIDE 98 MMOL/L (99-107); CREATININE 1.67 MG/DL (0.60-1.10); GLUCOSE 152 MG/DL (70-104); MAGNESIUM 1.6 MG/DL (1.5-2.4); PHOSPHORUS 3.8 MG/DL (2.3-4.5); SODIUM 137 MMOL/L (135-145); TOTAL CARBON DIOXIDE 33.3 MMOL/L (24-32); eGFR 42 ML/MIN
[2020-05-19 07:00] VITALS: BP 120/75
--- NOTE | 2020-05-19 07:13 | NUR ---
Problems reprioritized. Patient report given, questions answered & plan of care reviewed with Cristal DOUGLASS.
--- NOTE | 2020-05-19 07:15 | NUR ---
Patient in room [facility] 358B. I have received report from EVONNE SIDDIQUI and had the opportunity to ask questions and assume patient care.
[2020-05-19] MEDS: K and/or MAG REPLACEMENT MC SCH ×2 (08:00→19:45)
[2020-05-19] MEDS: pantoprazole 40 MG vial IV SCH ×2 (09:25→19:44)
[2020-05-19] MEDS: lactobacillus rhamnosus 10,000 MMU CELLS/CAPSULE PO SCH ×2 (09:26→19:44)
[2020-05-19] MEDS: rifaximin 550mg tablet PO SCH ×2 (09:26→19:44)
[2020-05-19] MEDS: heparin, porcine 5000 units/ml vial SQ SCH ×2 (09:27→19:45)
--- NOTE | 2020-05-19 10:30 | NUR ---
PATIENT REMOVED NG TUBE ON OWN, PAGED WHEN THE DR JORDON HOUGH STATED TO KEEP NG TUBE OUT AND GIVE PATIENT FULL LIQUID DIET
[2020-05-19] MEDS ORDERED: piperacillin/tazo 3.375gm/50ml 50 ML IV SCH (10:45)
[2020-05-19 14:00] VITALS: BP 127/65
--- NOTE | 2020-05-19 18:25 | NUR ---
Problems reprioritized. Patient report given, questions answered & plan of care reviewed with EVONNE SIDDIQUI.
[2020-05-19] MEDS ORDERED: potassium Cl 20 mEq SR tablet PO PRN (19:00)
[2020-05-19] MEDS ORDERED: potassium CL 10mEq/100ml bag 100 ML IV PRN (19:00)
[2020-05-19] MEDS: potassium Cl 20 mEq SR tablet PO PRN ×2 (19:45→23:42)
[2020-05-19 19:48] VITALS: BP 129/63
[2020-05-19] MEDS: ondansetron/PF 4mg/2ml inj IV PRN (21:33)
[2020-05-19] MEDS: piperacillin/tazo 3.375gm/50ml 50 ML IV SCH (23:42)
[2020-05-19 23:49] VITALS: BP 118/56
[2020-05-20] MEDS: normal saline 1000ml 1,000 ML IV SCH ×2 (02:03→16:40)
[2020-05-20] MEDS: lactulose 20gm/30ml cup PO SCH ×4 (03:07→16:40)
[2020-05-20] MEDS: potassium Cl 20 mEq SR tablet PO PRN (03:08)
[2020-05-20 06:01] LABS: BASOPHILS # (AUTO) 0.1 X10'3 (0-0.2); BASOPHILS % (AUTO) 0.5 % (0-1); EOSINOPHILS # (AUTO) 0.7 X10'3 (0-0.9); EOSINOPHILS % (AUTO) 4.9 % (0-6); HEMATOCRIT 39.8 % (42.0-52.0); HEMOGLOBIN 13.7 g/dl (14.0-17.9); LYMPHOCYTES % (AUTO) 7.1 % (21-51); MEAN CORPUSCULAR HEMOGLOBIN 29.2 PG (27.0-31.0); MEAN CORPUSCULAR HGB CONC 34.5 g/dL (33.0-36.5); MEAN CORPUSCULAR VOLUME 84.7 FL (78-98); MEAN PLATELET VOLUME 8.9 FL (7.4-10.4); MONOCYTES # (AUTO) 1.5 X10'3 (0-0.9); MONOCYTES % (AUTO) 11.1 % (2-12); NEUTROPHILS # (AUTO) 10.3 X10'3 (1.8-7.7); NEUTROPHILS % (AUTO) 76.4 % (42-75); PLATELET COUNT 164 X10'3 (140-440); RED BLOOD COUNT 4.69 X10'6 (4.70-6.10); WHITE BLOOD COUNT 13.5 X10'3 (4.5-11.0)
--- NOTE | 2020-05-20 06:12 | NUR ---
Patient in room [facility] 358B. I have received report from EVONNE SIDDIQUI and had the opportunity to ask questions and assume patient care.
[2020-05-20 06:19] LABS: ALBUMIN 2.9 G/DL (3.4-5.0); ANION GAP 8 (8-16); BILIRUBIN,TOTAL 3.6 MG/DL (0.1-1.0); BLOOD UREA NITROGEN 24 MG/DL (7-18); CALCIUM 8.7 MG/DL (8.5-10.1); CHLORIDE 99 MMOL/L (99-107); CREATININE 1.72 MG/DL (0.60-1.10); GLUCOSE 153 MG/DL (70-104); MAGNESIUM 1.8 MG/DL (1.5-2.4); PHOSPHORUS 3.2 MG/DL (2.3-4.5); POTASSIUM 3.5 MMOL/L (3.5-5.1); SODIUM 138 MMOL/L (135-145); TOTAL CARBON DIOXIDE 31.1 MMOL/L (24-32); eGFR 40 ML/MIN
[2020-05-20 06:20] LABS: ALANINE AMINOTRANSFERASE 16 U/L (12-78); ALBUMIN/GLOBULIN RATIO 0.7 (1.1-1.5); ALKALINE PHOSPHATASE 76 IU/L (46-116); ASPARTATE AMINO TRANSFERASE 37 U/L (10-37)
--- NOTE | 2020-05-20 06:30 | NUR ---
Problems reprioritized. Patient report given, questions answered & plan of care reviewed with Cristal DOUGLASS.
[2020-05-20 07:00] VITALS: BP 129/62
[2020-05-20] MEDS: K and/or MAG REPLACEMENT MC SCH ×2 (08:00→20:00)
[2020-05-20] MEDS: piperacillin/tazo 3.375gm/50ml 50 ML IV SCH ×2 (08:21→16:48)
[2020-05-20] MEDS: pantoprazole 40 MG vial IV SCH ×2 (08:21→21:49)
[2020-05-20] MEDS: lactobacillus rhamnosus 10,000 MMU CELLS/CAPSULE PO SCH ×2 (08:21→21:49)
[2020-05-20] MEDS: rifaximin 550mg tablet PO SCH ×2 (08:21→21:49)
[2020-05-20] MEDS: heparin, porcine 5000 units/ml vial SQ SCH ×2 (08:22→21:50)
[2020-05-20 11:00] VITALS: BP 120/60
--- NOTE | 2020-05-20 12:03 | NUR ---
Initial: Pt admit with hepatic encephalopathy. Pt with N/V, NG tube placed on admit however per MD notes pt removed it 05/19 and reports wanting to eat with improving N/V. Pt currently on a full liquid diet, advanced from clear liquids. Pt with poor PO intake however may be r/t N/V and having an NG tube in place. LBM 05/18, receiving routine Lactulose. Will continue to follow closely and monitor need for nutrition intervention pending further trends in PO intake since discontinuation of NG tube. Recommendations: 1) Advance to regular diet as medically indicated 2) Monitor need for ONS/additional protein 3) Routine Thiamine, Folic acid, and MVI given EtOH hx 4) Scaled weights per rx Addendum: 05/20/20 at [address] Amended: Links added.
--- NOTE | 2020-05-20 18:45 | NUR ---
Patient in room [facility]. I have received report from Leonid DOUGLASS and had the opportunity to ask questions and assume patient care.
--- NOTE | 2020-05-20 18:55 | NUR ---
Problems reprioritized. Patient report given, questions answered & plan of care reviewed with EVONNE MERCEDES.
[2020-05-20 19:00] VITALS: BP 126/64
[2020-05-21] VITALS: BP 113/57
[2020-05-21] MEDS ORDERED: temazepam 15mg capsule PO PRN (00:25)
[2020-05-21] MEDS ORDERED: acetaminophen 325mg tablet PO PRN (00:25)
[2020-05-21] MEDS: lactulose 20gm/30ml cup PO SCH ×2 (00:34→08:47)
[2020-05-21] MEDS: piperacillin/tazo 3.375gm/50ml 50 ML IV SCH ×2 (00:35→08:39)
[2020-05-21 06:02] LABS: BASOPHILS # (AUTO) 0.1 X10'3 (0-0.2); BASOPHILS % (AUTO) 1.1 % (0-1); EOSINOPHILS # (AUTO) 1.3 X10'3 (0-0.9); EOSINOPHILS % (AUTO) 12.8 % (0-6); HEMATOCRIT 36.4 % (42.0-52.0); HEMOGLOBIN 12.9 g/dl (14.0-17.9); LYMPHOCYTES # (AUTO) 1.3 X10'3 (1.1-4.8); LYMPHOCYTES % (AUTO) 12.9 % (21-51); MEAN CORPUSCULAR HGB CONC 35.3 g/dL (33.0-36.5); MEAN CORPUSCULAR VOLUME 84.8 FL (78-98); MEAN PLATELET VOLUME 8.8 FL (7.4-10.4); MONOCYTES # (AUTO) 1.1 X10'3 (0-0.9); MONOCYTES % (AUTO) 10.7 % (2-12); NEUTROPHILS # (AUTO) 6.2 X10'3 (1.8-7.7); NEUTROPHILS % (AUTO) 62.5 % (42-75); PLATELET COUNT 133 X10'3 (140-440); RED CELL DISTRIBUTION WIDTH 14.9 % (11.5-14.5)
[2020-05-21 06:17] LABS: ALANINE AMINOTRANSFERASE 19 U/L (12-78); ALBUMIN 2.6 G/DL (3.4-5.0); ALBUMIN/GLOBULIN RATIO 0.7 (1.1-1.5); ALKALINE PHOSPHATASE 69 IU/L (46-116); ANION GAP 8 (8-16); ASPARTATE AMINO TRANSFERASE 24 U/L (10-37); BILIRUBIN,TOTAL 2.8 MG/DL (0.1-1.0); BLOOD UREA NITROGEN 15 MG/DL (7-18); BUN/CREATININE RATIO 10.7 (5.4-32.0); CALCIUM 7.8 MG/DL (8.5-10.1); CHLORIDE 99 MMOL/L (99-107); GLUCOSE 125 MG/DL (70-104); MAGNESIUM 1.8 MG/DL (1.5-2.4); PHOSPHORUS 2.5 MG/DL (2.3-4.5); SODIUM 133 MMOL/L (135-145); TOTAL CARBON DIOXIDE 25.9 MMOL/L (24-32); TOTAL PROTEIN 6.1 G/DL (6.4-8.2); eGFR 51 ML/MIN
[2020-05-21 06:30] LABS: POTASSIUM 2.7 MMOL/L (3.5-5.1)
--- NOTE | 2020-05-21 06:30 | NUR ---
Problems reprioritized. Patient report given, questions answered & plan of care reviewed with Lucita DOUGLASS.
[2020-05-21 07:00] VITALS: BP 112/68
--- NOTE | 2020-05-21 07:08 | NUR ---
Patient in room [facility]. I have received report from EVONNE Streeter and had the opportunity to ask questions and assume patient care.
[2020-05-21] MEDS: K and/or MAG REPLACEMENT MC SCH (08:00)
[2020-05-21] MEDS: normal saline 1000ml 1,000 ML IV SCH (08:40)
[2020-05-21] MEDS: pantoprazole 40 MG vial IV SCH (08:42)
[2020-05-21] MEDS: rifaximin 550mg tablet PO SCH (08:47)
[2020-05-21] MEDS: potassium Cl 20 mEq SR tablet PO PRN ×2 (08:48→13:16)
[2020-05-21] MEDS: heparin, porcine 5000 units/ml vial SQ SCH (08:48)
[2020-05-21] MEDS: lactobacillus rhamnosus 10,000 MMU CELLS/CAPSULE PO SCH (08:48)
[2020-05-21 12:45] VITALS: BP 95/57
[2020-05-21] MEDS: scopolamine 1.5mg patch.TD72 TD SCH (13:23)
--- NOTE | 2020-05-21 15:17 | NUR ---
Pt left the hospital on W/C via medi-van accompanied by delivery driver/supervisor. IV removed intact prior discharge.
--- NOTE | 2020-05-21 16:04 | NUR ---
Pt DC'd back to [facility]. REPORT GIVEN TO RECEIVING NURSE.
== END 2020-05-21 16:47 | DRG 441 ==
LOC: ER 17:51 → ED HOLD 22:16 → SUR 3N 23:03
PROVIDERS: ADMIT Internal Medicine; ATTEND Family Medicine
DX: K72.90 Hepatic failure, unspecified without coma (principal); J69.0 Pneumonitis due to inhalation of food and vomit; E87.2 Acidosis; N17.9 Acute kidney failure, unspecified; K56.7 Ileus, unspecified; I12.9 Hypertensive chronic kidney disease with stage 1 through stage 4 chronic kidney disease, or unspecified chronic kidney disease; N18.9 Chronic kidney disease, unspecified; E11.42 Type 2 diabetes mellitus with diabetic polyneuropathy; E66.9 Obesity, unspecified; Z68.32 Body mass index [BMI] 32.0-32.9, adult; K70.30 Alcoholic cirrhosis of liver without ascites; E66.01 Morbid (severe) obesity due to excess calories; E87.6 Hypokalemia; E11.22 Type 2 diabetes mellitus with diabetic chronic kidney disease; K21.9 Gastro-esophageal reflux disease without esophagitis; K29.60 Other gastritis without bleeding; Z66 Do not resuscitate; F10.10 Alcohol abuse, uncomplicated; Z86.73 Personal history of transient ischemic attack (TIA), and cerebral infarction without residual deficits
CPT/HCPCS: 36415; 71045; 71260; 74177; 76937; 80053; 81001; 82140; 82948; 83036; 83735; 84100; 84145; 84443; 84484; 85007; 85025; 85610; 87081; 93005; 96361; 96374; 97116; 97161; 97530; 99285; C9113; G0378; J1644; J1815; J2405; J2543; J2765; J7030; Q9963; Q9967

== ENCOUNTER 2021-02-26 00:16 | Emergency (ER) | payer OTHER, MEDICAID ==
[~2021-02-26] VITALS: Ht 172.7 cm; Wt 118.0 kg
[~2021-02-26 00:16] MED LIST changes: +IBUP-1985 PO; -KEP500T PO; -LACT10SO PO; +LACT10SO3 PO; -LACT1CAP65 PO; -MELA3TAB11 PO; +MELA3TAB41 PO; -METO25TA6 PO; -TRAZ-251 PO
--- NOTE | 2021-02-26 00:40 | NUR ---
Self administered insulin approx 1 hour ago
[2021-02-26] MEDS ORDERED: insulin regular, human 10 units/0.1 ml syringe IV ONE ×2 (00:55→03:30)
[2021-02-26] MEDS ORDERED: normal saline 1000ML IV soln IVB ONE ×2 (00:55→03:30)
[2021-02-26 01:25] LABS: CLARITY,URINE CLEAR (Clear); COLOR,URINE YELLOW (Yellow); GLUCOSE, URINE >=1000 mg/dl (Neg); KETONES,URINE NEGATIVE (Neg); LEUKOCYTE ESTERASE ,URINE NEGATIVE (Neg); NITRITES, URINE NEGATIVE (Neg); OCCULT BLOOD,URINE NEGATIVE (Neg); PROTEIN,URINE NEGATIVE (Neg); UROBILINOGEN,URINE 0.2 E.U/dL (0.2-1.0)
[2021-02-26 01:28] LABS: UA COLLECTION TYPE NON-SPECIFIED
[2021-02-26 01:31] LABS: HEMOGLOBIN 12.5 g/dl (14.0-17.9); WHITE BLOOD COUNT 3.3 X10'3 (4.5-11.0)
[2021-02-26 01:31] LABS: BACTERIA,URINE NONE SEEN /HPF (Neg); RBC,URINE NONE SEEN /HPF (0-2); SQUAMOUS EPITHELIAL CELL,UR NONE SEEN /LPF (FEW); WBC,URINE NONE SEEN /HPF (0-4)
[2021-02-26 01:32] LABS: URINE AMPHETAMINE SCREEN NEGATIVE (Neg); URINE BARBITUATE SCREEN NEGATIVE (Neg); URINE BENZODIAZEPINES SCREEN NEGATIVE (Neg); URINE CANNABINOID SCREEN NEGATIVE (Neg); URINE COCAINE SCREEN NEGATIVE (Neg); URINE METHADONE SCREEN NEGATIVE (Neg); URINE OPIATE SCREEN NEGATIVE (Neg); URINE PHENCYCLIDINE SCREEN NEGATIVE (Neg)
[2021-02-26 01:33] LABS: HEMATOCRIT 37.7 % (42.0-52.0); MEAN CORPUSCULAR HEMOGLOBIN 26.6 PG (27.0-31.0); MEAN CORPUSCULAR HGB CONC 33.3 g/dL (33.0-36.5); MEAN CORPUSCULAR VOLUME 79.9 FL (78-98); MEAN PLATELET VOLUME 9.1 FL (7.4-10.4); PLATELET COUNT 95 X10'3 (140-440); RED BLOOD COUNT 4.72 X10'6 (4.70-6.10); RED CELL DISTRIBUTION WIDTH 15.6 % (11.5-14.5)
[2021-02-26 01:40] LABS: ALANINE AMINOTRANSFERASE 13 U/L (12-78); ALBUMIN 2.7 G/DL (3.4-5.0); ALBUMIN/GLOBULIN RATIO 0.7 (1.1-1.5); ALKALINE PHOSPHATASE 105 IU/L (46-116); ANION GAP 8 (8-16); ASPARTATE AMINO TRANSFERASE 23 U/L (10-37); BILIRUBIN,TOTAL 1.9 MG/DL (0.1-1.0); BLOOD UREA NITROGEN 12 MG/DL (7-18); BUN/CREATININE RATIO 10.1 (5.4-32.0); CALCIUM 8.5 MG/DL (8.5-10.1); CHLORIDE 102 MMOL/L (99-107); CREATININE 1.19 MG/DL (0.60-1.10); POTASSIUM 3.2 MMOL/L (3.5-5.1); SODIUM 135 MMOL/L (135-145); TOTAL CARBON DIOXIDE 24.7 MMOL/L (24-32); TOTAL PROTEIN 6.5 G/DL (6.4-8.2); eGFR 62 ML/MIN
[2021-02-26 01:45] LABS: GLUCOSE 499 MG/DL (70-104)
[2021-02-26 02:39] LABS: ETHANOL < 0.010 GM/DL (0.0-0.010); MAGNESIUM 1.7 MG/DL (1.5-2.4)
[2021-02-26] MEDS ORDERED: magnesium oxide 400mg tablet PO ONE (02:45)
[2021-02-26] MEDS ORDERED: potassium Cl 20 mEq SR tablet PO ONE ×2 (02:45→03:30)
[2021-02-26] MEDS ORDERED: folic acid 1mg tablet PO ONE (02:45)
[2021-02-26] MEDS ORDERED: thiamine 100mg tablet PO ONE (02:45)
[2021-02-26 03:51] LABS: TOTAL CELLS COUNTED 100
[2021-02-26 03:52] LABS: ANISOCYTOSIS FEW; MICROCYTOSIS 1+; PLATELET ESTIMATE DECREASED
[2021-02-26] MEDS ORDERED: NYST15PO4 TOP (04:31)
[2021-02-26] MEDS ORDERED: HUM100IN SQ (04:35)
[2021-02-26 04:52] VITALS: BP 130/81
[2021-02-26] MEDS ORDERED: acetaminophen 325mg tablet PO ONE (05:35)
--- NOTE | 2021-02-26 05:48 | NUR ---
Patient is from [place]. Ambulance brought him to [facility] instead of [facility] per patient request. Pt states he has no way to get back to [place].
--- NOTE | 2021-02-26 06:56 | NUR ---
Spoke with Shira at [facility]. States Guerrero from transportation services at this the facility will arrive at approximately 0800.
--- NOTE | 2021-02-27 23:51 | NUR ---
CALLED IN RX TO [facility] IN [place] HAD TO LEAVE MESSAGE THEY WERE CLOSED. CALLED PT BACK TO LET HIM KNOW.
== END 2021-02-26 08:36 | disposition home or self-care (01) ==
LOC: ER 00:17
DX: E11.65 Type 2 diabetes mellitus with hyperglycemia (principal); I13.10 Hypertensive heart and chronic kidney disease without heart failure, with stage 1 through stage 4 chronic kidney disease, or unspecified chronic kidney disease; E11.22 Type 2 diabetes mellitus with diabetic chronic kidney disease; N18.9 Chronic kidney disease, unspecified; R53.1 Weakness; E87.6 Hypokalemia; B37.2 Candidiasis of skin and nail; Z79.84 Long term (current) use of oral hypoglycemic drugs; Z79.899 Other long term (current) drug therapy
CPT/HCPCS: 36415; 80053; 80305; 80320; 81001; 82948; 83735; 85007; 85025; 96374; 96376; 99284; J1815; J7030